=== PATIENT | female | born 1980 | race African-American/Black ===

== ENCOUNTER 2019-12-10 16:27 | Outpatient (CLI) | payer BC, MEDICAID, SELFPAY ==
--- NOTE | 2019-12-10 17:47 | ECG_ITS ---
Measurements Intervals [place] Rate: 81 P: 54 VT: 131 QRS: 24 QRSD: 82 T: 23 QT: 367 QTc: 428 Interpretive Statements SINUS RHYTHM WITH SINUS ARRHYTHMIA NORMAL ECG Electronically Signed On 12-11-2019 8:08:32 CDT by Chris Velasquez D.O.
[2019-12-10 17:58] LABS: Thyroid Stimulating Hormone 0.726 uIU/mL (0.465-4.680)
== END 2019-12-10 16:28 | disposition home or self-care (01) ==
LOC: ANHLAB 16:34
PROVIDERS: Visit Provider Obstetrics & Gynecology Gynecology
DX: R53.83 Other fatigue (principal)
CPT/HCPCS: 36415; 84439; 84443; 93005

== ENCOUNTER 2019-12-20 15:52 | Inpatient (IN) | payer BC, MEDICAID, SELFPAY ==
[2019-12-20] VITALS (73 sets, daily range): BP systolic 78–147; BP diastolic 47–82; PULSE 34–121; TEMP 36.4; O2SAT 97–100; BMI 28.5
--- NOTE | ~2019-12-20 | US_ITS ---
EXAMINATION: US OB follow up DATE: 12/21/2019 10:01 INDICATION: Abdominal pain. Leaking fluid. TECHNIQUE: Real-time ultrasound of the pelvis was performed. COMPARISON: None. FINDINGS: There is a single living fetus in vertex presentation. The placenta is anterior. heart rate is 128 beats per minute (bpm). The amniotic fluid index is 14.1 cm, which is normal. There is a 9.2 cm fibroid in the anterior uterus. The following biometric data were obtained: Biparietal diameter (BPD): 7.1 cm; head circumference (HC): 25.7 cm; abdominal circumference (AC): 23 .9 cm; femur length (FL): 5.4 cm. These measurements are concordant. Estimated weight is 1216 g +/- 182 g, which correlates with 34th percentile when 03/11/20 is use d as estimated date of delivery. As single measurements, these parameters are each equal to the following estimated gestational ages w ith ranges of +/- 2 standard deviations: BPD: 28 weeks 3 days (26 weeks 2 days - 30 weeks 4 days). HC: 28 weeks 0 days (25 weeks 6 days - 30 weeks 0 days). AC: 28 weeks 1 days (26 weeks 0 days - 30 weeks 2 days). FL: 28 weeks 5 days (26 weeks 5 days - 30 weeks 6 days). estimated gestational age based solely on measurements from this exam is 28 weeks 2 days +/- 2 weeks 0 days. IMPRESSION: 1. Single living fetus in vertex presentation. 2. Estimated weight is 1216 g +/- 182 g, which correlates with 34th percentile when 03/11/20 is used as estimated date of delivery. 3. Uterine fibroid. Reviewed, dictated and finalized at location B. PING/RECEIVING MANAGER IMPRESSION: 1. Single living fetus in vertex presentation. 2. Estimated weight is 1216 g +/- 182 g, which correlates with 34th perc entile when 03/11/20 is used as estimated date of delivery. 3. Uterine fibroid.
[2019-12-20] MEDS: TERBUTALINE SULFATE 1 MG/ML VIAL 0.25 MG SUB-Q ×3 (17:27→20:10)
[2019-12-20 18:02] LABS: Add Urine Microscopic? YES; Appearance Urine Clear (Clear); Bacteria Urine Trace /hpf; Bilirubin Urine Negative (Negative); Blood Urine Negative (Negative); Color Urine Yellow (Yellow); Glucose Urine UA Negative (Negative); Ketones Urine Negative (Negative); Leukocyte Esterase Ur Negative LEU/UL (NEGATIVE); Mucus Urine Moderate /lpf; Nitrate Urine Negative (Negative); Protein Urine 1+ mg/dL (Negative); RBC Urine 0-2 /hpf (0-2); Specific Grav Ur 1.029 (1.001-1.035); Squamous Epithelial Cell Urine Moderate /hpf (Few); Urobilinogen Urine Negative mg/dL (<2.0); WBC Urine 0-3 /hpf (0-3)
[2019-12-20] MEDS: NIFEdipine 10 MG CAPSULE PO (21:09)
[2019-12-21] VITALS (58 sets, daily range): BP systolic 98–176; BP diastolic 43–125; PULSE 80–123; TEMP 36.1–36.6; O2SAT 98–100
[2019-12-21] MEDS: NIFEdipine 10 MG CAPSULE PO (01:18)
[2019-12-21] MEDS: AMPICILLIN 2 GM/NS 100 ML 2 GM/100 ML BAG IVPB (03:04)
[2019-12-21] MEDS: MAGNESIUM SULF 4 GM/WATER100ML 4 GM/100 ML BAG IVPB (03:57)
[2019-12-21] MEDS: LACTATED RINGERS 1,000 ML 75 ML IV CONT ×2 (03:57→14:16)
[2019-12-21] MEDS: BETAMETHASONE SOD PHOS/ACETATE 30 MG/5 ML VIAL 12 MG IM (04:01)
[2019-12-21] MEDS: MAGNESIUM SULF 20GM/WATER500ML 500 ML 50 MG IV CONT ×3 (04:35→23:23)
[2019-12-21] MEDS: AMPICILLIN 1 GM/NS 50 ML 1 GM/50 ML BAG IVPB ×5 (07:18→23:23)
--- NOTE | 2019-12-21 07:50 | WPDOBADMIT ---
Obstetrics - Admit Note Admission Note: record reviewed. No pertinent additions to the history and/or any subsequent changes in the physical findings that are not consistent with the expected course of the were found. Additions to the history and/or subsequent changes in the physical findings follow. Here with concern of SROM and SOB. Patient ruled out for SROM but noted contractions regularly. Upon questioning had abdominal pain that bent her over yesterday. Patient states no other concerns. Contractions are less intense and less frequent. Initially given Terbutaline x 3, then Procardia 10 q 6 but did not make 6 hours so given at 4 hr. Contractions continued and started on Magnesium, ampicillin, and given steroids. Afebrile VSS abdomen-soft, general upper tenderness, gravid, FHTs reassuring cervix- per RN cl/th (x 2) a/p 1. IUP 28 3/7 wks 2. contractions-continue magnesium, amp and steroids 3. abdominal tenderness-check CBC with diff., consider u/s
[2019-12-21 08:10] LABS: Basophils Percent Auto 0.1 % (0.2-1.2); Eosinophils Percent Auto 0.1 % (0-4.4); Immature Granulocyte Percent A 0.7 % (0-0.5); Lymphocytes Absolute Auto 0.63 K/mm3 (0.9-3.2); Lymphocytes Percent Auto 4.3 % (18.3-44.2); Mean Corpuscular HGB Conc 34.3 g/dl (32-36); Mean Corpuscular Hemoglobin 31.7 pg (26-34); Mean Corpuscular Volume 92.3 fl (80-100); Mean Platelet Volume 10.9 fl (7.4-10.4); Monocytes Absolute Auto 0.2 K/mm3 (0.1-0.6); Monocytes Percent Auto 1.5 % (2.6-8.5); Neutrophils Absolute Auto 13.8 K/mm3 (1.3-6.7); Neutrophils Percent Auto 93.3 % (45.5-73.1); Platelet Count Result 188 k/mm3 (150-375); Red Blood Count 3.79 M/mm3 (4.2-5.4); Red Cell Distribution Width 12.9 % (11.5-14.5); White Blood Count 14.8 K/mm3 (4.5-10.0)
[2019-12-21] MEDS: MULTIVIT/MIN/PREN/FOL AC/IRON TABLET 1 TAB PO (09:51)
[2019-12-21] MEDS: ACETAMINOPHEN 500 MG TABLET 1000 MG PO ×2 (09:51→20:37)
--- NOTE | 2019-12-21 10:33 | PC.NURSE ---
1020--Reported US results to Dr. Carpenter. Will continue same plan of care.
[2019-12-21] MEDS: VITAMIN B COMPLEX CAPSULE 1 CAP PO (11:37)
[2019-12-21] MEDS: ASPIRIN 81 MG CHEWABLE TABLET PO (11:38)
[2019-12-21] MEDS: DOCUSATE SODIUM 100 MG CAPSULE PO (19:27)
[2019-12-22] VITALS (52 sets, daily range): BP systolic 112–126; BP diastolic 43–65; PULSE 84–126; TEMP 36.7–37.4; O2SAT 97–100
[2019-12-22] MEDS: AMPICILLIN 1 GM/NS 50 ML 1 GM/50 ML BAG IVPB ×5 (04:05→20:22)
[2019-12-22] MEDS: BETAMETHASONE SOD PHOS/ACETATE 30 MG/5 ML VIAL 12 MG IM (04:11)
[2019-12-22] MEDS: LACTATED RINGERS 1,000 ML 75 ML IV CONT (04:30)
--- NOTE | 2019-12-22 07:55 | PC.NURSE ---
0755- Dr. Tovar at bedside, discussing plan of care with patient. Orders to start Procardia 20 mg q 4 hours, at 1200 dose turn magnesium down to 1g/hr. At 1600 dose, turn magnesium off.
[2019-12-22] MEDS: ASPIRIN 81 MG CHEWABLE TABLET PO (08:11)
[2019-12-22] MEDS: MULTIVIT/MIN/PREN/FOL AC/IRON TABLET 1 TAB PO (08:11)
[2019-12-22] MEDS: VITAMIN B COMPLEX CAPSULE 1 CAP PO (08:11)
[2019-12-22] MEDS: MAGNESIUM SULF 20GM/WATER500ML 500 ML 50 MG IV CONT (08:12)
[2019-12-22] MEDS: NIFEdipine 10 MG CAPSULE 20 MG PO ×4 (08:12→20:31)
[2019-12-22] MEDS: DOCUSATE SODIUM 100 MG CAPSULE PO ×2 (08:44→20:40)
[2019-12-22] MEDS: ACETAMINOPHEN 500 MG TABLET 1000 MG PO (20:39)
[2019-12-23 00:22] VITALS: BP 107/51; PULSE 92
[2019-12-23] MEDS: AMPICILLIN 1 GM/NS 50 ML 1 GM/50 ML BAG IVPB ×2 (00:22→04:31)
[2019-12-23] MEDS: NIFEdipine 10 MG CAPSULE 20 MG PO ×2 (00:23→04:30)
[2019-12-23 00:35] VITALS: TEMP 36.8
[2019-12-23 04:28] VITALS: BP 117/57; PULSE 91
--- NOTE | 2019-12-23 08:13 | PM.OBPNVD ---
OB - PN: Subj Subjective Date/time seen: 12/23/19 08:13 doing well today contractions much better feels occasionally OB - PN: Obj Data Labs CBC & Chem 7: 12/21/19 08:00 OB - PN A/P Assessment and Plan (1) labor in third trimester: Code(s): O60.03 - labor without delivery, third trimester Status: Acute Assessment and Plan: s/p steroids and magnesium continue with procardia every 4 hours . Time Spent With Patient Time: Total time spent is greater than 50% in coordination of care (as documented) at patient's floor/unit and/or counseling patient:
--- NOTE | 2020-01-20 12:02 | PM.OBDSVD ---
DS: Admitting Diagnosis Admitting Diagnosis Admitting Diagnosis: Abdominal Pain/SOB and Leaking DS: Discharge Diagnosis Discharge Diagnosis (1) labor in third trimester: Code(s): O60.03 - labor without delivery, third trimester Status: Acute OB - DS: Summary OB Procedures : NST and Ultrasound OB Procedures Intrapartum: Other (non delivered s/p steroids and magnesium and continue oral procardia for tocolysis) OB Procedures: : None Time Spent with Patient Time attestation: Total time spent providing and/or coordinating discharge services: Discharge Plan Discharge Attending physician on discharge: Alex Tovar Consulting providers: Phil Alejandro V. Discharging Clinician: Alex Tovar Patient Disposition: Home, Self-Care Activity: may shower and pelvic rest Diet: regular Discharge Instructions: OB ANTEPARTUM DISCHARGE INSTRUCTIONS This information is given to help you properly care for yourself at home after your discharge from the hospital. Follow these instructions until your doctor tells you otherwise. DIET: Eat Three Well Balanced Meals per Day Drink at Least Eight 8-Ounce Glasses of Caffeine-Free Beverages Daily Additional Diet Instructions: ACTIVITY: Bedrest Pelvic Rest- No [place] Additional Activity Instructions: RETURN TO LABOR AND DELIVERY IF YOU HAVE: More than 6 Contractions in an Hour Additional Reasons to Return to Labor and Delivery: Contractions may feel like abdominal pain, tightening, cramping, pressure, back ache, or thigh ache. 24 Hour Urine Collection: Continue 24 hour urine collection until at . When collection is completed, return specimen to the [facility]. See handout for 24 hour urine collection. OTHER INSTRUCTIONS: FOLLOW-UP CARE: Call Office and Make Appointment To see Follow up next week with Dr Tovar in/on Valuables released to patient or family? N/A Medications from home returned to patient? N/A I Acknowledge Receipt of and Understand the Above Instructions IF YOU HAVE ANY QUESTIONS REGARDING THESE INSTRUCTIONS, PLEASE CALL [phone]. IF PROBLEMS ARISE, CALL YOUR PROVIDER. IF EMERGENCY CARE IS NEEDED, [facility] EM[facility]GENCY ROOM IS AVAILABLE 24 HOURS A DAY. Stand Alone Forms: General Discharge Information Follow-up/Referrals: Alex Tovar MD [Physician] - Discharge Medications: New nifedipine 10 mg Capsule 20 mg PO Q4HR Qty: 180 RF: 2 No Action Adult Low Dose Aspirin 81 mg PO DAILY RF: 0 ferrous sulfate 325 mg (65 mg iron) Tablet 325 mg PO DAILY RF: 0 montelukast 10 mg tablet 10 mg PO DAILY RF: 0 ergocalciferol (vitamin D2) 1,250 mcg (50,000 unit) capsule 1,250 mcg PO WEEKLY RF: 0 prenat.vits,coco,[id number] Tablet 1 tablet PO DAILY RF: 0 Date of admission: 12/21/19 16:12 Primary Care Provider: UNKNOWN,DOCTOR Admitting Provider: Darby Carpenter Attending physician on admission: Alex Tovar
== END 2019-12-23 08:25 | disposition home or self-care (01) | DRG 833 ==
PROVIDERS: Admitting Provider Obstetrics & Gynecology Gynecology; Visit Provider Obstetrics & Gynecology
DX: O60.03 Preterm labor without delivery, third trimester (principal); Z3A.28 28 weeks gestation of pregnancy
CPT/HCPCS: 36415; 76816; 81001; 85025; 87086; A9270; J0290; J0702; J3105; J3475; J7120

== ENCOUNTER 2019-12-31 15:23 | Outpatient (CLI) | payer BC, MEDICAID, SELFPAY ==
[2019-12-31 15:52] LABS: Collection Time Urine 24 HOURS
[2019-12-31 16:08] LABS: Hematocrit 34.4 % (37.0-47.0); Hemoglobin 11.5 g/dL (12.0-15.0); Mean Corpuscular HGB Conc 33.4 g/dl (32-36); Mean Corpuscular Hemoglobin 31.1 pg (26-34); Mean Platelet Volume 10.3 fl (7.4-10.4); Platelet Count Result 274 k/mm3 (150-375); Red Cell Distribution Width 12.4 % (11.5-14.5); White Blood Count 9.6 K/mm3 (4.5-10.0)
[2019-12-31 16:25] LABS: Alanine Aminotransferase 51 U/L (4-35); Albumin Level 3.7 g/dL (3.5-5.1); Alkaline Phosphatase 132 U/L (38-126); Anion Gap 6 mmol/L (8-16); Aspartate Amino Transferase 41 U/L (14-36); Bilirubin,Total 0.2 mg/dL (0.2-1.3); Blood Urea Nitrogen 10 mg/dL (7-17); Calcium 9.4 mg/dL (8.4-10.2); Carbon Dioxide 27 mmol/L (22-30); Chloride 106 mmol/L (98-107); Estimated Glomerular Filt Rate > 60; Glucose 91 mg/dL (65-105); Potassium 3.8 mmol/L (3.4-5.0); Sodium 139 mmol/L (137-145); Uric Acid 3.7 mg/dL (2.5-7.5)
[2019-12-31 17:51] LABS: Patient Weight 180 Lbs
[2019-12-31 18:18] LABS: Total Volume 24 Hour Urine 2400 ml
[2019-12-31 18:23] LABS: Creatinine Clearance Urine 181.3 ml/min (75-125); Creatinine Urine 73.5 mg/dL; Total Protein Urine 24 Hr 288 MG/DAY (28-141); Total Protein Urine Random 12 mg/dL
== END 2019-12-31 15:24 | disposition home or self-care (01) ==
LOC: ANHLAB 15:26
PROVIDERS: Visit Provider Obstetrics & Gynecology
DX: O12.13 Gestational proteinuria, third trimester (principal); Z3A.30 30 weeks gestation of pregnancy
CPT/HCPCS: 36415; 80053; 81050; 82575; 84156; 84550; 85027

== ENCOUNTER 2020-01-05 12:27 | Observation (INO) | payer BC, MEDICAID, SELFPAY ==
[2020-01-05] VITALS (40 sets, daily range): BP systolic 97–121; BP diastolic 55–62; PULSE 73–126; TEMP 36.8; O2SAT 96–100
--- NOTE | 2020-01-05 13:11 | OBADM ---
This patient, Shannon Parkinson, admitted to the OB room OB Post 113 for observation. Patient/family oriented to hospital policies and general routines including ID bracelet, bed and alarms, visiting hours, pain management, procedures, bathroom and other care routines, personal items, smoking policy, room service/diet, and visiting hours. Patient/Family are encouraged to report perceived risks to care and to ask questions if they do not understand what they are told or what they should do.
[2020-01-05 13:33] LABS: Fetal Fibronectin Negative
[2020-01-05] MEDS: TERBUTALINE SULFATE 1 MG/ML VIAL 0.25 MG SUB-Q (14:10)
[2020-01-05 14:29] LABS: Add Urine Microscopic? YES; Appearance Urine Cloudy (Clear); Bacteria Urine Trace /hpf; Bilirubin Urine Negative (Negative); Blood Urine Negative (Negative); Color Urine Yellow (Yellow); Glucose Urine UA Negative (Negative); Ketones Urine Negative (Negative); Leukocyte Esterase Ur Negative LEU/UL (NEGATIVE); Mucus Urine Rare /lpf; Nitrate Urine Negative (Negative); Protein Urine Negative (Negative); RBC Urine 0-2 /hpf (0-2); Specific Grav Ur 1.017 (1.001-1.035); Squamous Epithelial Cell Urine Many /hpf (Few); Urobilinogen Urine Negative mg/dL (<2.0); WBC Urine 0-3 /hpf (0-3)
--- NOTE | 2020-01-20 12:09 | PM.OBTRLD ---
OB - Triage/Final Diagnosis Evaluation Laboratory results: Laboratory Tests 01/05/20 01/05/20 12:55 14:09 Urine Color Yellow Urine Appearance Cloudy H Urine pH 6.0 Ur Specific [place] 1.017 Urine Protein Negative Urine Glucose (UA) Negative Urine Ketones Negative Ur Blood (Man) Negative Urine Nitrate Negative Urine Bilirubin Negative Urine Urobilinogen Negative Ur Leukocyte Esterase Negative Urine RBC 0-2 Urine WBC 0-3 Ur Squamous Epith Cells Many H Urine Bacteria Trace Urine Mucus Rare Fibronectin Negative Final Diagnosis (1) labor in third trimester: Code(s): O60.03 - labor without delivery, third trimester Status: Acute
== END 2020-01-05 15:45 | disposition home or self-care (01) ==
PROVIDERS: Admitting Provider Obstetrics & Gynecology; Visit Provider Obstetrics & Gynecology
DX: O60.03 Preterm labor without delivery, third trimester (principal); Z3A.00 Weeks of gestation of pregnancy not specified
CPT/HCPCS: 81001; 82731; 96372; G0378; G0379; J3105

== ENCOUNTER 2020-01-12 15:36 | Observation (INO) | payer BC, MEDICAID, SELFPAY ==
[2020-01-12] VITALS (30 sets, daily range): BP systolic 82–117; BP diastolic 37–68; PULSE 76–124; TEMP 36.6; O2SAT 99–100; BMI 28.1
--- NOTE | 2020-01-12 15:36 | OBADM ---
This patient, Shannon Parkinson, admitted to the OB room OB Post 115 for observation. Patient/family oriented to hospital policies and general routines including ID bracelet, bed and alarms, visiting hours, pain management, procedures, bathroom and other care routines, personal items, smoking policy, room service/diet, and visiting hours. Patient/Family are encouraged to report perceived risks to care and to ask questions if they do not understand what they are told or what they should do.
--- NOTE | 2020-01-12 16:12 | PC.NURSE ---
Dr. Carpenter updated with patient assessment. FHT reactive. Uterine irritability present with occasional contractions. VSS. Orders received.
[2020-01-12] MEDS: TERBUTALINE SULFATE 1 MG/ML VIAL 0.25 MG SUB-Q ×2 (16:23→18:50)
[2020-01-12] MEDS: ACETAMINOPHEN 500 MG TABLET 1000 MG PO (19:31)
[2020-01-12] MEDS: NIFEdipine 10 MG CAPSULE 20 MG PO (19:32)
--- NOTE | 2020-01-15 14:22 | PM.OBTRLD ---
OB - Triage/Final Diagnosis Visit Information Reason for evaluation: other ( contractions)
== END 2020-01-12 20:15 | disposition home or self-care (01) ==
PROVIDERS: Admitting Provider Obstetrics & Gynecology Gynecology; Visit Provider Obstetrics & Gynecology Gynecology
DX: O60.00 Preterm labor without delivery, unspecified trimester (principal); Z3A.00 Weeks of gestation of pregnancy not specified
CPT/HCPCS: 96372; A9270; G0378; G0379; J3105

== ENCOUNTER 2020-01-18 21:49 | Observation (INO) | payer BC, MEDICAID, SELFPAY ==
[2020-01-18 22:01] VITALS: BP 107/64; PULSE 82
[2020-01-18 22:02] VITALS: TEMP 36.6
[2020-01-18 22:10] VITALS: BMI 28.5
[2020-01-18 22:15] VITALS: BP 108/63; PULSE 95
[2020-01-18 22:30] VITALS: BP 106/63; PULSE 88
[2020-01-18] MEDS: TERBUTALINE SULFATE 1 MG/ML VIAL 0.25 MG SUB-Q (22:44)
[2020-01-18 22:45] VITALS: BP 104/65; PULSE 78
[2020-01-18 23:08] VITALS: BP 89/46; PULSE 109
--- NOTE | 2020-01-19 01:19 | OBADM ---
This patient, Shannon Parkinson, admitted to the OB room OB Post 116 for observation. Patient/family oriented to hospital policies and general routines including ID bracelet, bed and alarms, visiting hours, pain management, procedures, bathroom and other care routines, personal items, smoking policy, room service/diet, and visiting hours. Patient/Family are encouraged to report perceived risks to care and to ask questions if they do not understand what they are told or what they should do.
--- NOTE | 2020-02-08 16:18 | PM.OBTRLD ---
OB - Triage/Final Diagnosis Visit Information Reason for evaluation: other (cramping and spotting)
== END 2020-01-19 00:30 | disposition home or self-care (01) ==
PROVIDERS: Admitting Provider Obstetrics & Gynecology Gynecology; Visit Provider Obstetrics & Gynecology Gynecology
DX: O26.853 Spotting complicating pregnancy, third trimester (principal); Z3A.34 34 weeks gestation of pregnancy
CPT/HCPCS: 84112; 96372; G0378; G0379; J3105

== ENCOUNTER 2020-01-24 10:38 | Observation (INO) | payer BC, MEDICAID, SELFPAY ==
[2020-01-24 11:16] VITALS: BP 102/42; PULSE 77
[2020-01-24 11:31] VITALS: BP 101/44; PULSE 75
[2020-01-24 11:46] VITALS: BP 99/43; PULSE 75
[2020-01-24 12:01] VITALS: BP 98/53; PULSE 76
--- NOTE | 2020-02-09 09:36 | PM.OBTRLD ---
OB - Triage/Final Diagnosis Final Diagnosis (1) labor in third trimester: Code(s): O60.03 - labor without delivery, third trimester Status: Acute
== END 2020-01-24 12:02 | disposition home or self-care (01) ==
PROVIDERS: Admitting Provider Obstetrics & Gynecology; Visit Provider Obstetrics & Gynecology
DX: O60.03 Preterm labor without delivery, third trimester (principal); Z3A.33 33 weeks gestation of pregnancy
CPT/HCPCS: 84112; G0378; G0379

== ENCOUNTER 2020-01-27 11:23 | Observation (INO) | payer BC, MEDICAID, SELFPAY ==
--- NOTE | ~2020-01-27 | US_ITS ---
US OB limited 01/27/2020 11:45 Indication: Check placenta. Vaginal spotting. Procedure: Realtime limited obstetrical ultrasound Comparison: 12/21/2019 Findings: There is a single living intrauterine in vertex presentation. Placenta is anterio r. heart rate is 138 BPM. There is a large uterine fibroid measuring 8.3 x 7.5 x 7.2 cm. Amniot ic fluid is subjectively normal. Impression: 1: Single living intrauterine in vertex presentation with heart rate of 138 BPM. 2: The placenta is grossly normal, without suggestion of placenta abruption. However, ultrasound is not diagnostic of abruption since acute hemorrhage can be isoechoic to be placenta. Recommend clinic al correlation. 3: Large uterine fibroid measuring 8.3 x 7.5 x 7.2 cm. Reviewed, dictated and finalized at location A. TECHNICIAN Impression: 1: Single living intrauterine in vertex presentation with heart rate of 138 BPM. 2: The placenta is grossly normal, without suggestion of placenta abruption. H owever, ultrasound is not diagnostic of abruption since acute hemorrhage can be isoechoic to be placenta. Recommend clinical correlation. 3: Large uterine fibroid measuring 8.3 x 7.5 x 7.2 cm.
[2020-01-27 11:26] VITALS: BMI 28.8
[2020-01-27] MEDS: NIFEdipine 10 MG CAPSULE 20 MG PO (11:26)
--- NOTE | 2020-01-27 11:26 | OBADM ---
This patient, Shannon Parkinson, admitted to the OB room OB Post 113 at 1018 for observation for vaginal spotting. Patient/family oriented to hospital policies and general routines including ID bracelet, bed and alarms, visiting hours, pain management, procedures, bathroom and other care routines, personal items, smoking policy, room service/diet, and visiting hours. Patient/Family are encouraged to report perceived risks to care and to ask questions if they do not understand what they are told or what they should do.
[2020-01-27 12:00] VITALS: BP 93/59; PULSE 96
[2020-01-27 12:01] VITALS: TEMP 36.9
--- NOTE | 2020-02-09 12:49 | PM.OBTRLD ---
OB - Triage/Final Diagnosis Final Diagnosis (1) labor in third trimester: Code(s): O60.03 - labor without delivery, third trimester Status: Acute
== END 2020-01-27 12:49 | disposition home or self-care (01) ==
LOC: ANHLDR 11:24 → ANHOBPP 11:35
PROVIDERS: Admitting Provider Obstetrics & Gynecology; Visit Provider Obstetrics & Gynecology
DX: O60.03 Preterm labor without delivery, third trimester (principal); Z3A.00 Weeks of gestation of pregnancy not specified
CPT/HCPCS: 76815; A9270; G0378; G0379

== ENCOUNTER 2020-02-14 10:26 | Outpatient (RCR) | payer BC, MEDICAID, SELFPAY ==
[2020-02-01 16:14] VITALS: BP 100/59; PULSE 98
[2020-02-05 12:34] VITALS: BP 105/60; PULSE 117
[2020-02-14 11:12] VITALS: BP 113/67; PULSE 81
== END 2020-03-06 07:46 | disposition home or self-care (01) ==
LOC: ANHOBOP 10:26
PROVIDERS: Visit Provider Obstetrics & Gynecology
DX: O14.93 Unspecified pre-eclampsia, third trimester (principal); Z87.51 Personal history of pre-term labor; Z3A.34 34 weeks gestation of pregnancy; Z3A.35 35 weeks gestation of pregnancy; Z3A.36 36 weeks gestation of pregnancy
CPT/HCPCS: 59025

== ENCOUNTER 2020-03-04 20:26 | Inpatient (IN) | payer BC, MEDICAID, SELFPAY ==
[2020-03-04] VITALS (13 sets, daily range): BP systolic 92–131; BP diastolic 49–86; PULSE 65–82; BMI 29.4
--- NOTE | 2020-03-04 21:14 | LDADM ---
This patient, Shannon Parkinson, was admitted to Labor/Delivery/Recovery 106 on 03/04/20 at 20:26. Plans for labor, pain management and were discussed with patient. Patient/family oriented to hospital policies and general routines including ID bracelet, bed and alarms, visiting hours, pain management, procedures, bathroom and other care routines, personal items, smoking policy, room service/diet and guest tray routines, infant security routines, and visiting hours. Patient/Family are encouraged to report perceived risks to care and to ask questions if they do not understand what they are told or what they should do. See OBIX for further documentation.
[2020-03-04] MEDS: DINOPROSTONE 10 MG VAG INSERT VAGINAL (21:45)
[2020-03-04 21:55] LABS: Basophils Percent Auto 0.3 % (0.2-1.2); Eosinophils Absolute Auto 0.1 K/mm3 (0-0.3); Eosinophils Percent Auto 0.5 % (0-4.4); Hematocrit 37.1 % (37.0-47.0); Hemoglobin 12.7 g/dL (12.0-15.0); Immature Granulocyte Absolute 0.09 K/mm3 (0.00-0.031); Lymphocytes Absolute Auto 1.74 K/mm3 (0.9-3.2); Lymphocytes Percent Auto 18.6 % (18.3-44.2); Mean Corpuscular HGB Conc 34.2 g/dl (32-36); Mean Corpuscular Hemoglobin 31.8 pg (26-34); Mean Platelet Volume 11.7 fl (7.4-10.4); Monocytes Absolute Auto 0.6 K/mm3 (0.1-0.6); Monocytes Percent Auto 6.5 % (2.6-8.5); Neutrophils Absolute Auto 6.9 K/mm3 (1.3-6.7); Neutrophils Percent Auto 73.1 % (45.5-73.1); Platelet Count Result 182 k/mm3 (150-375); Red Blood Count 3.99 M/mm3 (4.2-5.4); Red Cell Distribution Width 13.8 % (11.5-14.5); White Blood Count 9.4 K/mm3 (4.5-10.0)
[2020-03-04 22:14] LABS: Alanine Aminotransferase 81 U/L (4-35); Albumin Level 3.6 g/dL (3.5-5.1); Alkaline Phosphatase 189 U/L (38-126); Anion Gap 4 mmol/L (8-16); Aspartate Amino Transferase 57 U/L (14-36); Bilirubin,Total 0.5 mg/dL (0.2-1.3); Blood Urea Nitrogen 10 mg/dL (7-17); Calcium 9.7 mg/dL (8.4-10.2); Carbon Dioxide 23 mmol/L (22-30); Chloride 107 mmol/L (98-107); Estimated CRCL calculation 140 ml/min; Estimated Glomerular Filt Rate > 60; Glucose 82 mg/dL (65-105); Potassium 3.8 mmol/L (3.4-5.0); Sodium 134 mmol/L (137-145); Uric Acid 3.9 mg/dL (2.5-7.5)
--- NOTE | 2020-03-04 23:23 | WPDANESEPP ---
Anes - Eval Pre Procedure Procedure: labor epidural Date/Time: 03/04/20 23:23 Surgeon: corry Pre Op Diagnosis: Induction of Labor Patient Data Age: 39 Gender: F Height: 1.7 m Weight: 85.3 kg Last Vital Signs Pulse 76 03/04/20 23:16 BP 118/69 03/04/20 23:16 Allergies Allergy/AdvReac Type Severity Reaction Status Date / Time Latex, Natural Rubber Allergy Severe Anaphylaxis Verified 01/12/20 15:59 peanut Allergy Severe Anaphylaxis Verified 01/12/20 15:59 Home Medications Medication Instructions Recorded Confirmed Type Adult Low Dose Aspirin 81 mg PO DAILY 01/12/20 03/03/20 History ergocalciferol (vitamin D2) 1,250 mcg PO WEEKLY 01/12/20 03/03/20 History ferrous sulfate 325 mg PO DAILY 01/12/20 03/03/20 History montelukast 10 mg PO DAILY 01/12/20 03/03/20 History prenat.vits,coco,guc-[id number] 1 tablet PO DAILY 01/12/20 03/03/20 History glucosamine sulfate [Glucosamine] 500 mg PO DAILY 03/03/20 03/03/20 History Laboratory Tests 03/04/20 03/04/20 03/04/20 21:46 21:46 21:46 WBC 9.4 K/mm3 K/mm3 (4.5-10.0) RBC 3.99 M/mm3 L M/mm3 (4.2-5.4) Hgb 12.7 g/dL g/dL (12.0-15.0) Hct 37.1 % % (37.0-47.0) MCV 93.0 fl fl (80-100) MCH 31.8 pg pg (26-34) MCHC 34.2 g/dl g/dl (32-36) RDW 13.8 % % (11.5-14.5) Plt Count 182 k/mm3 k/mm3 (150-375) MPV 11.7 fl H fl (7.4-10.4) Immature Gran % (Auto) 1.0 % H % (0-0.5) Neut % (Auto) 73.1 % % (45.5-73.1) Lymph % (Auto) 18.6 % % (18.3-44.2) [place] % (Auto) 6.5 % % (2.6-8.5) Eos % (Auto) 0.5 % % (0-4.4) Baso % (Auto) 0.3 % % (0.2-1.2) Lymph # (Auto) 1.74 K/mm3 K/mm3 (0.9-3.2) [place] # (Auto) 0.6 K/mm3 K/mm3 (0.1-0.6) Eos # (Auto) 0.1 K/mm3 K/mm3 (0-0.3) Baso # (Auto) 0.0 K/mm3 K/mm3 (0.0-0.1) Abs Immat Gran (auto) 0.09 K/mm3 H K/mm3 (0.00-0.031) Absolute Neuts (auto) 6.9 K/mm3 H K/mm3 (1.3-6.7) Absolute Nucleated RBC 0.0 K/mm3 K/mm3 (0.0-0.012) Nucleated RBC % 0.0 % % (0.0-0.2) Sodium Potassium Chloride Carbon Dioxide Anion Gap BUN Creatinine Estim Creat Clear Calc Estimated GFR Glucose Uric Acid Cancelled Calcium Total Bilirubin AST ALT Alkaline Phosphatase Total Protein Albumin RPR Pending Blood Type Antibody Screen 03/04/20 03/04/20 21:46 21:46 WBC RBC Hgb Hct MCV MCH MCHC RDW Plt Count MPV Immature Gran % (Auto) Neut % (Auto) Lymph % (Auto) [place] % (Auto) Eos % (Auto) Baso % (Auto) Lymph # (Auto) [place] # (Auto) Eos # (Auto) Baso # (Auto) Abs Immat Gran (auto) Absolute Neuts (auto) Absolute Nucleated RBC Nucleated RBC % Sodium 134 mmol/L L mmol/L (137-145) Potassium 3.8 mmol/L mmol/L (3.4-5.0) Chloride 107 mmol/L mmol/L (98-107) Carbon Dioxide 23 mmol/L mmol/L (22-30) Anion Gap 4 mmol/L L mmol/L (8-16) BUN 10 mg/dL mg/dL (7-17) Creatinine 0.50 mg/dL L mg/dL (0.7-1.0) Estim Creat Clear Calc 140 ml/min ml/min Estimated GFR > 60 (59 - ) Glucose 82 mg/dL mg/dL (65-105) Uric Acid 3.9 mg/dL mg/dL (2.5-7.5) Calcium 9.7 mg/dL mg/dL (8.4-10.2) Total Bilirubin 0.5 mg/dL mg/dL (0.2-1.3) AST 57 U/L H U/L (14-36) ALT 81 U/L H U/L (4-35) Alkaline Phosphatase 189 U/L H U/L (38-126) Total Pr
[2020-03-05] VITALS (186 sets, daily range): BP systolic 70–135; BP diastolic 31–88; PULSE 51–90; RESP 16; TEMP 36.5–37; O2SAT 73–100
[2020-03-05] MEDS: MORPHINE SULFATE (*CRX) 2 MG/ML INJ IV PUSH (07:16)
[2020-03-05] MEDS: LACTATED RINGERS 1,000 ML 125 ML IV CONT ×2 (07:24→07:36)
[2020-03-05] MEDS: OXYTOCIN 30 UNITS/NS 500 ML 30 UNITS/500 ML BAG IV CONT (10:01)
[2020-03-05] MEDS: SODIUM CHLORIDE 0.9% IV 300 ML 600 ML I-UTERINE (11:47)
--- NOTE | 2020-03-05 11:56 | WPDOBADMIT ---
Obstetrics - Admit Note Admission Note: SROM clear fluid /- vertex. record reviewed. No pertinent additions to the history and/or any subsequent changes in the physical findings that are not consistent with the expected course of the were found. Additions to the history and/or subsequent changes in the physical findings follow. None.
[2020-03-05] MEDS: OXYTOCIN 30 UNITS/NS 500 ML 30 UNITS/500 ML BAG 125 UNITS IV CONT (16:14)
[2020-03-05] MEDS: WITCH HAZEL 40 PADS 1 PAD TOPICAL (17:32)
[2020-03-05] MEDS: BENZOCAINE 20% AER SPR (*SP) 56 GM CAN 1 SPRAY TOPICAL (17:32)
--- NOTE | 2020-03-05 18:51 | OBPPTRN ---
Patient transferred to post room #284 via wheelchair. Support person present. Oriented to unit, room, information board, rooming in, admission packet and security measures. Patient verbalizes understanding.
[2020-03-05] MEDS: IBUPROFEN 600 MG TABLET PO (18:57)
[2020-03-05] MEDS: ACETAMINOPHEN 325 MG TABLET 650 MG PO (23:59)
[2020-03-06 04:30] LABS: Hematocrit 36.5 % (37.0-47.0); Hemoglobin 12.4 g/dL (12.0-15.0)
[2020-03-06 07:50] VITALS: BP 119/73; PULSE 67; RESP 18; TEMP 36.8; O2SAT 99
--- NOTE | 2020-03-06 08:35 | PM.OBPNVD ---
OB - PN: Subj Subjective Date/time seen: 03/06/20 08:35 Patient comments: no complaints and pain well controlled baby status: doing well OB - PN: Obj Data Labs CBC & Chem 7: 03/06/20 04:08 03/04/20 21:46 Labs: Laboratory Results - last 24 hr 03/06/20 04:08 Hgb 12.4 Hct 36.5 L OB - PN A/P Plan day: 1 Plan: routine care Time Spent With Patient Time: Total time spent is greater than 50% in coordination of care (as documented) at patient's floor/unit and/or counseling patient: Exam : Bimanual exam- vagina & uterus: other (Uterus firm, nt @U)
--- NOTE | 2020-03-06 08:37 | WPDANLDPN2 ---
Anes-Prog Note L&D Date/Time: 03/06/20 08:37 Comfortable throughout: labor and delivery Neuraxial method: epidural Epidural/Spinal procedure site: clean & non-tender Neuro status: Neuro function grossly intact. Cardiovascular status: normal Respiratory status: normal Airway patency: baseline Mental status: baseline Post-Op hydration status: normal Vital Signs: Last Vital Signs Temp 36.8 C 03/06/20 07:50 Pulse 67 03/06/20 07:50 Resp 18 03/06/20 07:50 BP 119/73 03/06/20 07:50 Pulse Ox 99 03/06/20 07:50 Pain score (VAS): 0 I/O: Intake & Output 03/05/20 03/06/20 03/06/20 23:59 07:59 15:59 Intake Total 1500 Output Total 82 Balance 1418 Post-procedural complaints: none Patient feedback: Patient satisfied with anesthetic care.
[2020-03-06] MEDS: IBUPROFEN 600 MG TABLET PO ×3 (08:39→23:50)
[2020-03-06] MEDS: LANOLIN (LANSINOH) 7.5 GM CREAM 1 APPLIC TOPICAL (08:40)
[2020-03-06 09:16] LABS: Rapid Plasma Reagin Non-Reactive (NonReactive)
--- NOTE | 2020-03-06 09:22 | PC.NURSE ---
Pt. took home vitamin and singulair.
[2020-03-06 18:53] VITALS: BP 111/68; PULSE 64; RESP 16; TEMP 36.1; O2SAT 100
[2020-03-07] MEDS: IBUPROFEN 600 MG TABLET PO (06:05)
--- NOTE | 2020-03-07 07:37 | PM.OBPNVD ---
OB - PN: Subj Subjective Date/time seen: 03/07/20 07:37 Patient comments: no complaints and pain well controlled baby status: doing well and nursing well OB - PN: Obj Data Labs CBC & Chem 7: 03/06/20 04:08 03/04/20 21:46 Labs: Laboratory Results - last 24 hr 03/04/20 21:46 RPR Non-reactive OB - PN A/P Plan day: 2 Plan: routine care, discharge home and follow up 6 weeks Comments: plans micronor Time Spent With Patient Time: Total time spent is greater than 50% in coordination of care (as documented) at patient's floor/unit and/or counseling patient: Exam : Bimanual exam- vagina & uterus: other (Uterus firm, nt @U)
[2020-03-07 08:10] VITALS: BP 123/64; PULSE 71; RESP 18; TEMP 37.3; O2SAT 99
[2020-03-07] MEDS: MULTIVIT/MIN/PREN/FOL AC/IRON TABLET 1 TAB PO (08:40)
[2020-03-07] MEDS: MONTELUKAST SODIUM 10 MG TABLET PO (08:40)
[2020-03-07] MEDS: TETANUS,DIPHTHERIA,AC PERTUSSIS ADULT (0.5 ML) BOOSTRIX IM (08:42)
--- NOTE | 2020-03-07 10:20 | PC.NURSE ---
Patient received instruction on viewing the discharge video Mother & Baby Care, The First Two Weeks . Patient was given the opportunity and encouraged to ask questions. Patient verbalized understanding of information shared and has been given the mother/baby guide for home reference.
--- NOTE | 2020-03-07 10:23 | PC.NURSE ---
Consulted with patient, reviewed infant feeding cues, frequencies, duration of feedings, feeding elimination flow sheet, and signs of adequate intake. Demonstrated stimulation techniques to wake infant for feeding. Mom latched infant to breast independently. Reviewed positioning/alignment, holding breast and asymmetrical latch on. was able to latch with slightly shallow latch. Mom assisted to get more breast into infant's mouth while on breast and to hold close during feeding. Infant nursed eagerly, with steady draws and frequent swallowing noted. Reviewed signs of a correct latch, effective nursing and suck swallow ratio. was able to maintain latch with minimal discomfort to mother. Mom states she nipples have been tender from earlier feeding, some abrasions noted on left breast. Nipple care reviewed including doing good hand washing prior to applying nipple cream. Instructed mother to call out for RN assistance if she is unable to latch infant for feeding or she has discomfort with nursing. Instructed feeding should be initiated three hours from start of last feeding or if feeding cues are noted before. Mother voiced understanding of information shared. Mother verbalizes she is able to independently latch with appropriate positioning/alignment. She states she has some discomfort, breast care and deep latch discussed. Encouraged mom to call out for next feeding to work on achieving deeper latch. Mom is feeding as required and waking infant to feed if needed. has had 8 effective feedings in the past 24 hours, and is currently meeting outcomes for weight, output, jaundice and feeding frequencies. Mom is supplementing with formula after breastfeedings as suggested by peds. Mother states she feels confident to continue effective at home. Reviewed transition to breast milk, signs of adequate intake, and engorgement/relief. Instructed to call ICP if intake/output less than required. Reviewed community resources on the [facility] website and in the Mom/Baby guide. Information on outpatient services provided. Mother has no further questions at this time.
--- NOTE | 2020-03-13 20:50 | P.PCNOB_ITS ---
OB - Delivery Note Procedure Delivery date: 03/05/20 Procedure: events: Labor Induction Intrapartal events: None Induction method: AROM and per pitocin protocol Delivery monitor: external FHT, external uterine and internal uterine Route of delivery: Laceration Description: Vaginal - 1st Degree Delivery repair: vicryl Specimen: Yes Quantitative Blood Loss (ml): 16 Anesthesia type: Epidural [place] Baby Date of : 03/05/20 Time of : 15:34 Weeks of gestation at delivery: 39 Infant gender: Male Weight (pounds): 6 Weight (ounces): 12 presentation: vertex position: Left Occiput Anterior Placenta delivery description: Spontaneous cord vessel description: 3 Vessels score one minute: 7 score five minutes: 9
--- NOTE | 2020-03-13 20:52 | PM.OBDSVD ---
DS: Admitting Diagnosis Admitting Diagnosis Admitting Diagnosis: induction of labor DS: Discharge Diagnosis Discharge Diagnosis (1) (normal spontaneous vaginal delivery): Code(s): O80 - Encounter for full-term uncomplicated delivery Status: Acute OB - DS: Summary OB Procedures : NST, Ultrasound and PTL Mgmt OB Procedures Intrapartum: Spontaneous Vag Delivery OB Procedures: : None Time Spent with Patient Time attestation: Total time spent providing and/or coordinating discharge services: Exam GI: Other: ff below umbilicus DS: Data Data Completed and Pending Completed studies during hospitalization: Pending at discharge 03/05/20 16:22 Surgical [PTH] Routine Discharge Plan Discharge Attending physician on discharge: Alex Tovar Consulting providers: Ashlyn Fallon Discharging Clinician: Darby Carpenter Patient Disposition: Home, Self-Care Activity: may shower and pelvic rest Diet: as tolerated Discharge Instructions: Education: Mom and Baby Guide and Preeclampsia Handout Given to: Mother Follow-Up: Call your delivering provider's office for an appointment to be seen in: 6 Weeks Mom and baby should come to the [facility] for the follow-up appointment. Appointment Date/Time: March 08, 2020 at 9:00 am What to expect at your follow-up visit: Physical Assessment Call [phone] if you are unable to keep your appointment time. BREAST CARE: * Wear a snug supportive bra. * For engorgement discomfort: Breast Feeding: * Apply warm moist washcloths * Express milk as needed to relieve engorgement * Wear loose clothing * For sore nipples: * Identify correct latch-on * Apply warm moist washcloths before and after nursing * Air dry nipples after nursing * May apply Lansinoh cream to nipples EPISIOTOMY/PERINEAL CARE: * Until bleeding stops, use your glory bottle after urinating * Change your pad frequently throughout the day * You may take sitz baths several times a day (fill your bathtub with warm water and soak for 20 minutes.) Do NOT bathe in the water * No tub baths until seen by your physician - You may shower ACTIVITY: * Rest as much as possible. * Do not exercise or lift anything heavier than your baby (such as laundry or other children.) * Avoid stairs or driving as much as possible. * Do not put anything into the vagina. No douching, tampons, or sexual activity until seen by physician. NOTIFY PHYSICIAN IF YOU HAVE ANY QUESTIONS OR IF ANY OF THE FOLLOWING SYMPTOMS OCCUR: * If your episiotomy or stitches become red, swollen, or more painful than what you have experienced in the hospital. * If your vaginal bleeding becomes foul smelling. * If your vaginal bleeding becomes more heavy than a period or if your bleeding changes from pink to bright red. However, you may pass an occasional walnut-sized clot once or twice for the first week . * If you experience a sharp, shooting pain in you calves. * If you discover a hard, reddened area on your breast or if you experience flu-like symptoms. DIET: * Eat regular, well-balanced meals. * Drink plenty of fluids daily. If , drink to thirst. Stand Alone Forms: General Discharge Information Follow-up/Referrals: Alex Tovar MD [Physician] - Discharge Medications: New norethindrone (contraceptive) 0.35 mg tablet 0.35 mg PO DAILY Qty: 1 RF: 4 Continued montelukast 10 mg tablet 10 mg PO DAILY RF: 0 ergocalciferol (vitamin D2) 1,250 mcg (50,000 unit) capsule 1,250 mcg PO WEEKLY RF: 0 prenat.vits,coco,gmt-ojnp-nbauo Tablet 1 tablet PO DAILY RF: 0 Discontinued Adult Low Dose Aspirin 81 mg PO DAILY RF: 0 ferrous sulfate 325 mg (65 mg iron) Tablet 325 mg PO DAILY RF: 0 glucosamine sulfate [Glucosamine] 500 mg Tablet
== END 2020-03-07 13:27 | disposition home or self-care (01) | DRG 807 ==
LOC: ANHLDR 03-05 15:50 → ANHOB2 03-07 07:52 → ANHLDR 03-09 07:17 → ANHOB2 03-09 07:17
PROVIDERS: Admitting Provider Obstetrics & Gynecology; Visit Provider Obstetrics & Gynecology Gynecology
DX: O13.4 Gestational [pregnancy-induced] hypertension without significant proteinuria, complicating childbirth (principal); Z37.0 Single live birth; Z3A.39 39 weeks gestation of pregnancy; O36.8330 Maternal care for abnormalities of the fetal heart rate or rhythm, third trimester, not applicable or unspecified; O71.4 Obstetric high vaginal laceration alone; O69.81X0 Labor and delivery complicated by cord around neck, without compression, not applicable or unspecified
CPT/HCPCS: 36415; 80053; 84550; 85014; 85018; 85025; 86592; 86850; 86900; 86901; 88307; 90715; A9270; J2270; J2590; J2795; J7030; J7120